=== PATIENT | male | born 2000 | race Two or more races ===

== ENCOUNTER 2019-03-31 10:28 | Emergency (ER) | payer SELFPAY ==
[2019-03-31 10:51] VITALS: BP 117/73
--- NOTE | 2019-03-31 11:16 | UC ---
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" unable to verbalize if it was a cancer or benign mild intermittent SOB - History of Current Complaint Chief Complaint: UCChestPain Stated Complaint: SOB/CHEST PAIN Time Seen by Provider: 03/31/19 10:37 Hx Obtained From: Patient Onset/Duration: Gradual Onset Timing: Intermittent Episodes Lasting: - minutes Initial Severity: Mild Current Severity: Severe Pain Intensity: 8 Chest Pain Location: Upper Sternal Character: Burning Aggravating Factor(s): Position - worse when supine Alleviating Factor(s): Spontaneous Resolution Associated Signs & Symptoms: Positive: Chest Pain, SOB - mild at times, Abdominal Pain. Negative: Vision Changes, Anxiety, Recent Stress, Headaches, Numbness, Tingling, Weakness, Dizziness, Swelling, Syncope, Fever, Diaphoresis, Nausea/Vomiting, Palpitations, Cough, Hemoptysis, Back Pain, Calf Pain/Swelling - Allergy/Home Medications Allergies/Adverse Reactions: Allergies Allergy/AdvReac Type Severity Reaction Status Date / Time No Known Allergies Allergy Verified 03/31/19 10:35 Home Medications: Home Medications Aspirin 325 mg PO PRN 03/31/19 [History] PMH/Surg Hx/FS Hx/Imm Hx Previously Healthy: Yes - Surgical History Surgical History: Yes Surgery Procedure, Year, and Place: right testicle removal for a mass=August 2018 - Family History Known Family History: Positive: Hypertension - Social History Alcohol Use: None Substance Use Type: None Smoking Status (MU): Never Smoked Tobacco Review of Systems All Other Systems Reviewed And Are Negative: Yes Constitutional: Positive: Negative Skin: Positive: Negative Eyes: Positive: Negative ENT: Positive: Sore Throat Respiratory: Positive: Shortness Of Breath Cardiovascular: Positive: Chest Pain Gastrointestinal: Positive: Abdominal Pain Genitourinary: Positive: Negative Motor: Positive: Negative Neurovascular: Positive: Negative Musculoskeletal: Positive: Negative Neurological: Positive: Negative Psychological: Positive: Negative Physical Exam Triage Information Reviewed: Yes Appearance: Well-Appearing Vital Signs: Initial Vital Signs Temp 98.3 F 03/31/19 10:37 Pulse 62 03/31/19 10:37 Resp 15 03/31/19 10:37 BP 117/73 03/31/19 10:37 Pulse Ox 100 03/31/19 10:37 Vital Signs Reviewed: Yes Eyes: Positive: Conjunctiva Clear ENT: Positive: Hearing grossly normal, Uvula midline. Negative: Nasal congestion, Nasal drainage, Tonsillar swelling, Tonsillar exudate, Trismus, Muffled voice, Hoarse voice Dental Exam: Normal Neck: Positive: Supple, Nontender, No Lymphadenopathy Respiratory: Positive: Chest non-tender, Lungs clear, Normal breath sounds, No respiratory distress, No accessory muscle use Cardiovascular: Positive: RRR Abdomen Description: Negative: Nontender - mild epigastric tenderness Bowel Sounds: Positive: Present Musculoskeletal: Positive: ROM Intact, No Edema Neurological: Positive: Alert Psychological Exam: Normal Skin Exam: Normal Diagnostics - Radiology No standard instances Radiology Interpretation Completed By: Radiologist Summary of Radiographic Findings: CXR- NAD - EKG Cardiac Rate: NL Cardiac Rhythm: Sinus: Normal Ectopy: None ST Segment: Normal - Clinical Impression Provider Diagnosis: Non-cardiac chest pain Discharge ED - Sign-Out/Discharge Documenting (check all that apply): Patient Departure All imaging exams completed and their final reports reviewed: No Studies - Discharge Plan Condition: Stable Disposition: HOME Patient Education Materials: Noncardiac Chest Pain (ED), Gastroesophageal Reflux Disease (DC) Print Language: GERMAN Referrals: [facility] [place] [facility] [Outside] - As Soon As Possible Additional Instructions: avoid aspirin/advil or aleve recheck for new or worsening symptoms you may want to also get some MYLANTA and take 30 ml every 2 hours while awake for 2 days - Billing Disposition and Condition Condition: STABLE Disposition: Home
[2019-03-31] MEDS ORDERED: Famotidine TAB* 20 MG PO ONE (12:12)
== END 2019-03-31 12:27 | disposition home or self-care (01) ==
LOC: UCCORT 10:28
DX: R07.89 Other chest pain (principal); R10.13 Epigastric pain; R06.02 Shortness of breath; J02.9 Acute pharyngitis, unspecified
CPT/HCPCS: 71046; 93005; 99202; A9270-GY; G0463

== ENCOUNTER 2019-04-01 14:41 | Emergency (ER) | payer SELFPAY ==
[2019-04-01 15:07] VITALS: BP 114/62
--- NOTE | 2019-04-01 15:08 | UC ---
UC General HPI - HPI Summary HPI Summary: 18 yo seen yesterday with episgastric pain, advised to begin use of famotidine, presumed that he had possible acid reflux. He returns to day with complaints of pain in the throat and neck, with radiation to the left arm. Via historiographer, it turns out that he visited a friend who works in a factory on 03/26, and was standing near chemicals which are known corrosive agents, included Clind # 153 a concentrated high foaming acid, Hydroxy Plus, Ellipse # 285 and Chlorinated alkaline foam cleanser. The following day he had headache and eye irritation. He was in the environment of these chemicals but did not touch them. He was aware of fumes in the environment. He has visual blurring x 4 days, tongue tingling and loss of appetite. He ate chicken and broth yesterday, but he has had only water today. He is voiding normally, stools are normal. - History of Current Complaint Stated Complaint: CHEST PAIN Time Seen by Provider: 04/01/19 14:43 Hx Obtained From: Patient, Family/Traffic Manager - here with mother and friend who interprets Hungarian to Burmese. Onset/Duration: Gradual Onset, Lasting Days - 6 Timing: Constant Onset Severity: Moderate Current Severity: Moderate Associated Signs & Symptoms: Positive: Chest Pain, Decreased Oral Intake, Headache - heavy head/frontal headache, SOB. 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 - Surgical History Surgical History: Yes Surgery Procedure, Year, and Place: right testicle removal for a mass=August 2018 - Family History Known Family History: Positive: Hypertension, Other - parents living and healthy - Social History Occupation: Unemployed Lives: With Family Alcohol Use: None Substance Use Type: None Smoking Status (MU): Never Smoked Tobacco Review of Systems All Other Systems Reviewed And Are Negative: Yes Constitutional: Positive: Fatigue - poor sleep x days Skin: Negative: Rash Eyes: Positive: Blurred Vision, Eye Redness. Negative: Diplopia ENT: Positive: Sore Throat Respiratory: Positive: Shortness Of Breath. Negative: Cough Cardiovascular: Positive: Chest Pain. Negative: Palpitations Gastrointestinal: Positive: Other - loss of taste and appetite Genitourinary: Negative: Dysuria, Hematuria, Frequency, Urgency Motor: Positive: Negative Neurovascular: Positive: Negative Musculoskeletal: Negative: Arthralgia, Edema, Myalgia Neurological: Positive: Headache Psychological: Positive: Negative Is Patient Immunocompromised?: No Physical Exam Triage Information Reviewed: Yes Appearance: Well-Appearing, Well-Nourished, Pain Distress - objectively mild Eyes: Positive: Conjunctiva Inflamed - mild injection, no lid swelling, no draiange. ENT: Positive: Pharynx normal, TMs normal. Negative: Nasal drainage Neck: Positive: Supple, Nontender, No Lymphadenopathy Respiratory: Positive: Lungs clear, Normal breath sounds, No respiratory distress Cardiovascular: Positive: RRR, No Murmur Abdomen Description: Positive: Nontender, No Organomegaly, Soft Musculoskeletal Exam: Normal Neurological Exam: Normal Neurological: Positive: Alert, Muscle Tone Normal Psychological Exam: Normal Skin Exam: Normal Skin: Negative: Rashes Course/Dx - Course Course Of Treatment: Discussed that being in the environment of chemicals could cause symptoms, but there is no objective evidence of chemical exposure, no respiratory distress. Reassured that there are no worrisome findings,and no further testing can be offered here. Advised rest, acetaminophen, continue famotidine. - Diagnoses Provider Diagnosis: Headache, Hazardous chemical suspected exposure Discharge ED - Sign-Out/Discharge Documenting (check all that apply): Patient Departure All imaging exams completed and their final reports reviewed: No Studies - Discharge Plan Condition: Stable Disposition: HOME Patient Education Materials: Acute Headache (ED) Referrals: No Primary Care Phys,NOPCP [Primary Care Provider] - Additional Instructions: The headache is most likely the result of worry and poor sleep. Use acetaminophen (Tylenol) 650mg every 6 hours as needed. Continue famotidine. Eat lightly, foods such as soup, cooked vegetable, fruits, yogurt and rest. Follow up in the emergency room if symptoms worsen so that more testing could be done. Overall, I would expect that these symptoms will pass within 1-2 days. - Billing Disposition and Condition Condition: STABLE Disposition: Home
== END 2019-04-01 16:03 | disposition home or self-care (01) ==
LOC: UCCORT 14:41
DX: R51 Headache (principal); R10.13 Epigastric pain; M54.2 Cervicalgia; R07.0 Pain in throat; M79.602 Pain in left arm; H57.89 Other specified disorders of eye and adnexa; R07.9 Chest pain, unspecified; R53.83 Other fatigue; H53.8 Other visual disturbances
CPT/HCPCS: 93005; 99212; G0463